=== PATIENT | female | born 1960 | race Caucasian/White ===

== ENCOUNTER 2018-01-10 12:23 | Emergency (ER) | payer MEDICAID, OTHER ==
[~2018-01-10] VITALS: Ht 180.3 cm; Wt 75.0 kg
[~2018-01-10 12:23] MED LIST: IBUP-1051 PO
[2018-01-10 12:43] VITALS: BP 140/93
== END 2018-01-10 14:31 | disposition home or self-care (01) ==
LOC: ER 12:23
DX: S82.141A Displaced bicondylar fracture of right tibia, initial encounter for closed fracture (principal); S92.001A Unspecified fracture of right calcaneus, initial encounter for closed fracture; J44.9 Chronic obstructive pulmonary disease, unspecified; K21.9 Gastro-esophageal reflux disease without esophagitis; Z59.0 Homelessness; Z60.2 Problems related to living alone; V89.2XXA Person injured in unspecified motor-vehicle accident, traffic, initial encounter; Y93.89 Activity, other specified; Y92.89 Other specified places as the place of occurrence of the external cause; Y99.8 Other external cause status
CPT/HCPCS: 99284

== ENCOUNTER 2018-10-23 23:45 | Emergency (ER) | payer MEDICAID, OTHER ==
[~2018-10-23] VITALS: Ht 175.3 cm; Wt 72.7 kg
[2018-10-23 23:49] VITALS: BP 179/128
--- NOTE | 2018-10-24 00:01 | NUR ---
Patient BIB EMS with complaints of bilateral leg pain 05/11 that started tonight, she also thinks she might have been a little dizzy. I will continue to monitor. Addendum: 10/24/18 at 0016 by CAROLYN Pt going to xray
[2018-10-24] MEDS ORDERED: HYDROcodone/acetaminophen 10/325mg tab PO ONE (00:10)
--- NOTE | 2018-10-24 00:18 | NUR ---
Patient to xray on [facility].
--- NOTE | 2018-10-24 00:28 | NUR ---
Patient back from xray, she is laying on gurney and [place] was just given.
[2018-10-24] MEDS ORDERED: NAPR-56 PO (00:39)
[2018-10-25] MEDS ORDERED: MAGN200T8 PO (06:26)
[2018-10-25] MEDS ORDERED: CYCL-1 PO (06:26)
== END 2018-10-24 01:01 | disposition home or self-care (01) ==
LOC: ER 23:46
DX: M25.551 Pain in right hip (principal); J44.9 Chronic obstructive pulmonary disease, unspecified; M06.9 Rheumatoid arthritis, unspecified; M25.561 Pain in right knee; K21.9 Gastro-esophageal reflux disease without esophagitis; G89.29 Other chronic pain; F12.90 Cannabis use, unspecified, uncomplicated; Z59.0 Homelessness; Z88.2 Allergy status to sulfonamides; Z91.030 Bee allergy status
CPT/HCPCS: 73502; 73560; 99284

== ENCOUNTER 2018-10-24 19:48 | Emergency (ER) | payer MEDICAID ==
[~2018-10-24] VITALS: Ht 175.3 cm; Wt 75.0 kg
[~2018-10-24 19:48] MED LIST changes: +NAPR-56 PO
[2018-10-24 19:52] VITALS: BP 174/114
--- NOTE | 2018-10-24 20:17 | NUR ---
She states she 'didn't make it' the meeting that she was suppose to have at the [place] today at 2:30, but did talk to 'someone' there and 'they gave me information about different stuff.'
[2018-10-25] MEDS ORDERED: MAGN200T8 PO (06:26)
[2018-10-25] MEDS ORDERED: CYCL-1 PO (06:26)
== END 2018-10-24 21:03 | disposition home or self-care (01) ==
LOC: ER 19:49
DX: S90.821A Blister (nonthermal), right foot, initial encounter (principal); S90.822A Blister (nonthermal), left foot, initial encounter; R42 Dizziness and giddiness; J44.9 Chronic obstructive pulmonary disease, unspecified; K21.9 Gastro-esophageal reflux disease without esophagitis; M19.90 Unspecified osteoarthritis, unspecified site; G89.29 Other chronic pain; Z88.2 Allergy status to sulfonamides; Z79.899 Other long term (current) drug therapy; Z98.890 Other specified postprocedural states; Z60.2 Problems related to living alone; Z59.0 Homelessness; X58.XXXA Exposure to other specified factors, initial encounter; Y93.89 Activity, other specified; Y92.89 Other specified places as the place of occurrence of the external cause; Y99.8 Other external cause status
CPT/HCPCS: 99283

== ENCOUNTER 2018-10-25 06:14 | Emergency (ER) | payer MEDICAID ==
[~2018-10-25] VITALS: Ht 175.3 cm; Wt 75.0 kg
[2018-10-25 06:20] VITALS: BP 195/118
[2018-10-25] MEDS ORDERED: cyclobenzaprine 10mg tablet PO ONE (06:25)
[2018-10-25] MEDS ORDERED: magnesium oxide 400mg tablet PO ONE (06:25)
[2018-10-25] MEDS ORDERED: MAGN200T8 PO (06:26)
[2018-10-25] MEDS ORDERED: CYCL-1 PO (06:26)
== END 2018-10-25 06:42 | disposition home or self-care (01) ==
LOC: ER 06:15
DX: M79.604 Pain in right leg (principal); R25.2 Cramp and spasm; J44.9 Chronic obstructive pulmonary disease, unspecified; K21.9 Gastro-esophageal reflux disease without esophagitis; M19.90 Unspecified osteoarthritis, unspecified site; G89.29 Other chronic pain; F41.9 Anxiety disorder, unspecified; F32.9 Major depressive disorder, single episode, unspecified; F20.9 Schizophrenia, unspecified; F17.210 Nicotine dependence, cigarettes, uncomplicated; Z59.0 Homelessness; Z98.890 Other specified postprocedural states; Z88.2 Allergy status to sulfonamides; Z91.030 Bee allergy status
CPT/HCPCS: 99283